=== PATIENT | female | born 1945 | race Caucasian/White ===

== ENCOUNTER 2023-11-08 20:45 | Inpatient (IN) | payer MEDICARE, OTHER ==
[~2023-11-08] VITALS: Ht 162.6 cm; Wt 66.2 kg
[2023-11-08] MEDS ORDERED: MELATONIN 3 MG TABLET PO PRN (22:15)
[2023-11-08] MEDS ORDERED: MIRALAX 17 GM POWD.PACK PO PRN (22:15)
[2023-11-08] MEDS ORDERED: FAMOTIDINE 20 MG TABLET PO PRN (22:15)
[2023-11-09 00:20] VITALS: BP 111/63; TEMP 98.1; O2SAT 95
[2023-11-09 06:13] VITALS: BP 127/64; TEMP 98.1; O2SAT 96
[2023-11-09] MEDS: CALCIUM CARBONATE 600 MG TABLET PO SCH (09:16)
[2023-11-09] MEDS: OMEGA-3 FATTY ACIDS/FISH OIL CAPSULE PO SCH (09:16)
[2023-11-09] MEDS: OXYBUTYNIN CHLORIDE 5 MG TABLET PO SCH (09:16)
[2023-11-09] MEDS: levETIRAcetam 500 MG TABLET PO SCH (09:16)
[2023-11-09 09:48] VITALS: BP 119/63; TEMP 98.3; O2SAT 93
[2023-11-09] MEDS ORDERED: LEVE500T83 PO (10:13)
[2023-11-09] MEDS ORDERED: MELA1TAB53 PO (10:13)
[2023-11-09] MEDS ORDERED: POLY17PO4 PO (10:14)
[2023-11-09] MEDS ORDERED: POTA-194 PO (10:15)
[2023-11-09] MEDS ORDERED: ACET-2030 PO (10:16)
[2023-11-09] MEDS ORDERED: ALEN70TA80 PO (10:17)
[2023-11-09] MEDS ORDERED: CALC-1210 PO (10:20)
[2023-11-09] MEDS ORDERED: FAMO40TA7 PO (10:20)
[2023-11-09] MEDS ORDERED: OMEG-165 PO (10:20)
[2023-11-09] MEDS ORDERED: LORA10CA PO (10:21)
[2023-11-09] MEDS ORDERED: OXYB5TAB16 PO (10:21)
[2023-11-09] MEDS: LORATADINE 10 MG TABLET PO PRN (14:41)
[2023-11-09 15:39] VITALS: BP 106/53; TEMP 98; O2SAT 95
[2023-11-09] MEDS ORDERED: ACETAMINOPHEN 325 MG TABLET PO PRN (18:00)
[2023-11-09] MEDS ORDERED: Medication Not On Formulary EA (Melatonin 0.5 MG) PO PRN (18:00)
[2023-11-09] MEDS ORDERED: Medication Not On Formulary EA (Famotidine 40 MG) PO PRN (18:00)
[2023-11-09] MEDS ORDERED: ZOLPIDEM 5 MG TABLET PO PRN (18:00)
[2023-11-09] MEDS ORDERED: MAGNESIUM HYDROXIDE 30 ML LIQUID UDC PO PRN (18:00)
[2023-11-09] MEDS ORDERED: POTASSIUM CHLORIDE 20 MEQ TAB.PRT.SR PO PRN (18:00)
[2023-11-09] MEDS ORDERED: MIRALAX 17 GM POWD.PACK PO PRN (18:00)
[2023-11-09] MEDS ORDERED: ALENDRONATE SODIUM 70 MG TABLET PO SCH (18:00)
[2023-11-09] MEDS ORDERED: REMEDY ESSENTIAL ZINC PASTE 113 GM TP PRN (18:00)
[2023-11-09] MEDS ORDERED: ONDANSETRON 4 MG/2 ML VIAL IV PRN (18:00)
[2023-11-09] MEDS ORDERED: ONDANSETRON HCL 4 MG TABLET PO PRN (18:45)
[2023-11-09 20:00] VITALS: BP 130/54; TEMP 98.4; O2SAT 96
[2023-11-10] MEDS: ACETAMINOPHEN 325 MG TABLET PO PRN (05:54)
[2023-11-10 06:19] VITALS: BP 145/53; TEMP 98.1; O2SAT 100
[2023-11-10 06:38] LABS: BASOPHILS # (AUTO) 0.1 K/UL (0.0-0.2); EOSINOPHILS # (AUTO) 0.2 K/uL (0.0-0.7); EOSINOPHILS % (AUTO) 1.9 % (0.0-7.0); HEMATOCRIT 40.8 % (31.2-41.9); HEMOGLOBIN 13.8 g/dL (10.9-14.3); LYMPHOCYTES # (AUTO) 2.5 K/uL (0.8-4.8); LYMPHOCYTES % (AUTO) 31.1 % (20.5-51.5); MEAN CORPUSCULAR HEMOGLOBIN 30.4 uug (24.7-32.8); MEAN CORPUSCULAR HGB CONC 34 g/dL (32.3-35.6); MEAN CORPUSCULAR VOLUME 90.1 fL (75.5-95.3); MONOCYTES # (AUTO) 0.6 K/uL (0.1-1.30); MONOCYTES % (AUTO) 7.7 % (0.0-11.0); NEUTROPHILS # (AUTO) 4.7 K/uL (1.8-8.9); NEUTROPHILS % (AUTO) 58.3 % (38.5-71.5); PLATELET COUNT (AUTO) 235 K/uL (179-408); RED BLOOD CELL COUNT(AUTO) 4.53 MIL/uL (3.63-4.92); RED CELL DISTRIBUTION WIDTH 14.4 % (12.3-17.7)
[2023-11-10 07:03] VITALS: BP 113/53; TEMP 97.3; O2SAT 97
[2023-11-10 07:12] LABS: CALCIUM 9.5 mg/dL (8.5-10.1); CREATININE 0.7 mg/dL (0.6-1.3); DIFFERENTIAL COMMENT 1; MAGNESIUM 1.9 mg/dL (1.8-2.4)
[2023-11-10 08:32] VITALS: BP 112/62; TEMP 97.5; O2SAT 95
[2023-11-10] MEDS: CALCIUM CARB/VITAMIN D 600-400 MG TABLET PO SCH (08:46)
[2023-11-10] MEDS: OXYBUTYNIN CHLORIDE 5 MG TABLET PO SCH (08:46)
[2023-11-10] MEDS ORDERED: EPA PO SCH (09:00)
[2023-11-10] MEDS ORDERED: DHA PO SCH (09:00)
[2023-11-10] MEDS ORDERED: Medication Not On Formulary EA (Levetiracetam 500 MG) PO SCH (09:00)
[2023-11-10] MEDS ORDERED: FISH OIL PO SCH (09:00)
[2023-11-10] MEDS ORDERED: OMEGA PO SCH (09:00)
[2023-11-10 15:37] VITALS: BP 113/59; TEMP 97.3; O2SAT 94
[2023-11-10 20:00] VITALS: BP 117/50; TEMP 98.7; O2SAT 93
[2023-11-11 12:00] VITALS: BP 120/51; TEMP 97.6; O2SAT 95
[2023-11-11 16:00] VITALS: BP 114/54; TEMP 97.8; O2SAT 97
[2023-11-11 20:12] VITALS: BP 128/61; TEMP 98.4; O2SAT 95
[2023-11-12 06:00] VITALS: BP 118/60; TEMP 98.6; O2SAT 96
[2023-11-12 16:11] VITALS: BP 123/50; TEMP 97.9; O2SAT 97
[2023-11-12 20:28] VITALS: BP 124/57; TEMP 98.1; O2SAT 95
[2023-11-13 05:50] VITALS: BP 124/52; TEMP 97.8; O2SAT 96
[2023-11-13 16:50] VITALS: BP 122/75; TEMP 98.1; O2SAT 96
[2023-11-13 20:00] VITALS: BP 136/58; TEMP 97.9; O2SAT 96
[2023-11-14] MEDS: ALENDRONATE SODIUM 70 MG TABLET PO SCH (05:36)
[2023-11-14 05:54] VITALS: BP 101/53; TEMP 97.5; O2SAT 95
[2023-11-14 15:35] VITALS: BP 114/52; TEMP 98.3; O2SAT 97
[2023-11-14 20:00] VITALS: BP 105/47; TEMP 98; O2SAT 97
[2023-11-15] MEDS ORDERED: ALENDRONATE SODIUM 70 MG TABLET PO SCH (06:00)
[2023-11-15 06:22] VITALS: BP 128/58; TEMP 98.3; O2SAT 95
[2023-11-15 16:00] VITALS: BP 125/58; TEMP 98; O2SAT 95
[2023-11-15] MEDS ORDERED: ACETAMINOPHEN 325 MG TABLET PO PRN (17:30)
[2023-11-15 20:00] VITALS: BP 121/64; TEMP 98.7; O2SAT 95
[2023-11-16 06:30] VITALS: BP 120/56; TEMP 97.7; O2SAT 98
== END 2023-11-16 15:15 | disposition home health service (06) | DRG 57 ==
PROVIDERS: ADMIT Physical Medicine & Rehabilitation; ATTEND Physical Medicine & Rehabilitation
DX: I69.198 Other sequelae of nontraumatic intracerebral hemorrhage (principal); E78.5 Hyperlipidemia, unspecified; I10 Essential (primary) hypertension; M19.90 Unspecified osteoarthritis, unspecified site; J30.2 Other seasonal allergic rhinitis; M25.511 Pain in right shoulder; R41.0 Disorientation, unspecified; R51.9 Headache, unspecified; Z91.81 History of falling
CPT/HCPCS: 36415; 83735; 84100; 85025; 97535-GO-CO; J8499